=== PATIENT | male | born 1985 | race African-American/Black ===

== ENCOUNTER 2018-09-08 16:32 | Emergency (ER) | payer SELFPAY ==
--- NOTE | 2018-09-08 17:36 | ER ---
Nurse's Notes [facility] Name: Jay Son Jr Age: 32 yrs Sex: Male : 1985 Arrival Date: 09/08/2018 Time: 16:37 Bed 30 Private MD: Diagnosis: Encounter for removal of sutures Presentation: 09/08 16:38 Presenting complaint: Patient states: Patient would like his stitches removed that were aj placed at [facility] on Wednesday. Transition of care: patient was not received from another setting of care. Onset of symptoms was September 03, 2018. Risk Assessment: Do you want to hurt yourself or someone else? Patient reports no desire to harm self or others. Initial Sepsis Screen: Does the patient meet any 2 criteria? No. Patient's initial sepsis screen is negative. Does the patient have a suspected source of infection? No. Patient's initial sepsis screen is negative. Care prior to arrival: None. 16:38 Method Of Arrival: Ambulatory 16:38 Acuity: LOU 5 aj Triage Assessment: 16:40 General: Appears in no apparent distress. comfortable, Behavior is calm, cooperative, aj appropriate for age. Pain: Denies pain. Neuro: Level of Consciousness is awake, alert, obeys commands, Oriented to person, place, time, situation, Appropriate for age. Respiratory: Airway is patent Respiratory effort is even, unlabored, Respiratory pattern is regular, symmetrical. Derm: Skin is intact, is healthy with good turgor, Skin is pink, warm \T\ dry. normal. Injury Description: Laceration sustained to outer aspect of left eyebrow is 0.5 to 2.5 cm long. Historical: - Allergies: 16:40 PENICILLINS; aj - Home Meds: 16:40 albuterol sulfate 2.5 mg /3 mL (0.083 %) Inhl nebu [Active]; Clindamycin Oral [Active]; aj - PMHx: 16:40 Asthma; aj - PSHx: 16:40 None; aj - Immunization history:: Last tetanus immunization: < 10 years ago. - Social history:: Smoking status: Patient/guardian denies using tobacco. - Ebola Screening: : Patient negative for fever greater than or equal to 101.5 degrees Fahrenheit, and additional compatible Ebola Virus Disease symptoms Patient denies exposure to infectious person Patient denies travel to an Ebola-affected area in the 21 days before illness onset No symptoms or risks identified at this time. - Family history:: not pertinent. Screenin:45 Abuse screen: Denies threats or abuse. Denies injuries from another. Nutritional sv screening: No deficits noted. Tuberculosis screening: No symptoms or risk factors identified. Fall Risk None identified. Assessment: 16:54 General: Appears in no apparent distress. comfortable, well developed, Behavior is sv calm, cooperative, appropriate for age. Pain: Denies pain. Neuro: Level of Consciousness is awake, alert, obeys commands, Oriented to person, place, time, situation, Gait is steady. Respiratory: Respiratory effort is even, unlabored, Respiratory pattern is regular, symmetrical. Derm: Skin is pink, warm \T\ dry. sutures noted to the left eyebrow, pt stated they were placed on Wednesday. Vital Signs: 16:40 BP 153 / 73; Pulse 91; Resp 18; Temp 98.1; Pulse Ox 99% on R/A; Weight 93.89 kg; Height aj 6 ft. 2 in. (187.96 cm); 16:40 Body Mass Index 26.58 (93.89 kg, 187.96 cm) ED Course: 16:37 Patient arrived in ED. ds1 16:39 Triage completed. aj 16:40 Arm band placed on right wrist. Patient placed in an exam room. aj 16:45 Jagruti Monae, RN is Primary Nurse. sv 16:45 Patient has correct armband on for positive identification. Door closed. Head of bed sv elevated. 16:46 Petey Leiva MD is Attending Physician. [facility] 17:24 suture removal to the left eyebrow. Patient did not have IV access during this emergency room visit. 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 Exp: hb 06/02/2020. Lot #: [id number]. } Route: IM; Site: left deltoid; 17:46 Follow up: Response: No adverse reaction sv Outcome: 17:35 Discharge ordered by . abdi 17:40 Discharged to home ambulatory. sv 17:40 Condition: stable 17:40 Discharge instructions given to patient, Instructed on discharge instructions, follow up and referral plans. wound care, Demonstrated understanding of instructions, follow-up care, wound care. 17:40 Patient left the ED. sv Signatures: Jagruti Monae RN RN sv Myers, Amanda, RN RN aj Anderson, Corey, MD MD cha Sanford, Demi ds1 Krystal Orozco RN RN
--- NOTE | 2018-09-08 17:36 | EDPHYS ---
Physician Documentation [facility] Name: Jay Son Jr Age: 32 yrs Sex: Male : 1985 Arrival Date: 09/08/2018 Time: 16:37 Bed 30 Private MD: JAMSHID Physician Petey Leiva HPI: 09/08 17:34 This 32 yrs old Black Male presents to ER via Ambulatory with complaints of Suture abdi Removal. 17:23 The patient has sutures on the left eye. Previous treatment: The patient was initially abdi treated 10 day(s) ago. Sutures/kenisha progress: The patient has no c/o's. The wound is well-healing with no redness, swelling, discharge, or dehiscence reported. The patient has not experienced similar symptoms in the past. Historical: - Allergies: 16:40 PENICILLINS; aj - Home Meds: 16:40 albuterol sulfate 2.5 mg /3 mL (0.083 %) Inhl nebu [Active]; Clindamycin Oral [Active]; aj - PMHx: 16:40 Asthma; aj - PSHx: 16:40 None; aj - Immunization history:: Last tetanus immunization: < 10 years ago. - Social history:: Smoking status: Patient/guardian denies using tobacco. - Ebola Screening: : Patient negative for fever greater than or equal to 101.5 degrees Fahrenheit, and additional compatible Ebola Virus Disease symptoms Patient denies exposure to infectious person Patient denies travel to an Ebola-affected area in the 21 days before illness onset No symptoms or risks identified at this time. - Family history:: not pertinent. ROS: 17:23 Constitutional: Negative for fever, chills, and weight loss, Eyes: Negative for injury, abdi pain, redness, and discharge, ENT: Negative for injury, pain, and discharge, Neck: Negative for injury, pain, and swelling, Cardiovascular: Negative for chest pain, palpitations, and edema, Respiratory: Negative for shortness of breath, cough, wheezing, and pleuritic chest pain, Abdomen/GI: Negative for abdominal pain, nausea, vomiting, diarrhea, and constipation, Back: Negative for injury and pain, : Negative for injury, bleeding, discharge, and swelling, MS/Extremity: Negative for injury and deformity, Neuro: Negative for headache, weakness, numbness, tingling, and seizure, Psych: Negative for depression, anxiety, suicide ideation, homicidal ideation, and hallucinations, Allergy/Immunology: Negative for hives, rash, and allergies, Endocrine: Negative for neck swelling, polydipsia, polyuria, polyphagia, and marked weight changes, Hematologic/Lymphatic: Negative for swollen nodes, abnormal bleeding, and unusual bruising. 17:23 Skin: Positive for laceration(s), of the outer aspect of left eyebrow. Exam: 17:23 Constitutional: This is a well developed, well nourished patient who is awake, alert, abdi and in no acute distress. Eyes: Pupils equal round and reactive to light, extra-ocular motions intact. Lids and lashes normal. Conjunctiva and sclera are non-icteric and not injected. Cornea within normal limits. Periorbital areas with no swelling, redness, or edema. ENT: Nares patent. No nasal discharge, no septal abnormalities noted. Tympanic membranes are normal and external auditory canals are clear. Oropharynx with no redness, swelling, or masses, exudates, or evidence of obstruction, uvula midline. Mucous membranes moist. Neck: Trachea midline, no thyromegaly or masses palpated, and no cervical lymphadenopathy. Supple, full range of motion without nuchal rigidity, or vertebral point tenderness. No Meningismus. Chest/axilla: Normal chest wall appearance and motion. Nontender with no deformity. No lesions are appreciated. Cardiovascular: Regular rate and rhythm with a normal S1 and S2. No gallops, murmurs, or rubs. Normal PMI, no JVD. No pulse deficits. Respiratory: Lungs have equal breath sounds bilaterally, clear to auscultation and percussion. No rales, rhonchi or wheezes noted. No increased work of breathing, no retractions or nasal flaring. Abdomen/GI: Soft, non-tender, with normal bowel sounds. No distension or tympany. No guarding or rebound. No evidence of tenderness throughout. Back: No spinal tenderness. No costovertebral tenderness. Full range of motion. Male : Normal genitalia with no discharge or lesions. Skin: Warm, dry with normal turgor. Normal color with no rashes, no lesions, and no evidence of cellulitis. MS/ Extremity: Pulses equal, no cyanosis. Neurovascular intact. Full, normal range of motion. Neuro: Awake and alert, GCS 15, oriented to person, place, time, and situation. Cranial nerves II-XII grossly intact. Motor strength 5/5 in all extremities. Sensory grossly intact. Cerebellar exam normal. Normal gait. Psych: Awake, alert, with orientation to person, place and time. Behavior, mood, and affect are within normal limits. 17:23 Head/face: healing wound. Vital Signs: 16:40 BP 153 / 73; Pulse 91; Resp 18; Temp 98.1; Pulse Ox 99% on R/A; Weight 93.89 kg; Height aj 6 ft. 2 in. (187.96 cm); 16:40 Body Mass Index 26.58 (93.89 kg, 187.96 cm) Procedures: 17:34 Suture/Staple removal: Removed 4 sutures, from face and outer aspect of left eyebrow, [facility] site appears well healed, dressed with Neosporin, Patient tolerated well. MDM: 16:46 Patient medically screened. [facility] 17:34 Data reviewed: vital signs, nurses notes. 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 Exp: hb 06/02/2020. Lot #: [id number]. } Route: IM; Site: left deltoid; 17:46 Follow up: Response: No adverse reaction sv Disposition: 09/08/18 17:35 Discharged to Home. Impression: Encounter for removal of sutures. - Condition is Stable. - Discharge Instructions: Suture Removal, Care After, Incision Care, Adult. - Medication Reconciliation Form, Thank You Letter, Antibiotic Education, Prescription Opioid Use form. - Follow up: Private Physician; When: 2 - 3 days; Reason: Recheck today's complaints, Continuance of care, Re-evaluation by your physician. - Problem is new. - Symptoms have improved. Signatures: Jagruti Monae RN RN sv Myers, Amanda, RN RN aj Anderson, Corey, MD MD cha Baxter, Heather, RN RN Corrections: (The following items were deleted from the chart) 17:40 17:35 09/08/2018 17:35 Discharged to Home. Impression: Encounter for removal of sv sutures. Condition is Stable. Forms are Medication Reconciliation Form, Thank You Letter, Antibiotic Education, Prescription Opioid Use. Follow up: Private Physician; When: 2 - 3 days; Reason: Recheck today's complaints, Continuance of care, Re-evaluation by your physician. Problem is new. Symptoms have improved. abdi
[2018-09-08] MEDS ORDERED: TETANUS & DIPHTHERIA TOX,ADULT 0.5 ML VIAL ONE (17:53)
== END 2018-09-08 17:40 | disposition home or self-care (01) ==
LOC: ER 16:32
DX: Z48.02 Encounter for removal of sutures (principal); Z88.0 Allergy status to penicillin; J45.909 Unspecified asthma, uncomplicated; Z23 Encounter for immunization
CPT/HCPCS: 90471; 90714; 99283